=== PATIENT | male | born 1930 | race Two or more races ===

== ENCOUNTER 2016-07-02 09:06 | Inpatient (IN) | payer MEDICARE, OTHER ==
[~2016-07-02] VITALS: Ht 172.7 cm; Wt 74.4 kg
[2016-07-02] MEDS ORDERED: ONDANSETRON HCL/PF 4 MG/2 ML VIAL ONE ×2 (09:11→11:20)
[2016-07-02] MEDS ORDERED: MORPHINE SULFATE INJ 2 MG/ML DISP.SYRIN ONE ×2 (09:11→11:20)
[2016-07-02] MEDS ORDERED: IV NS 0.9% 500 ML IV ONE (09:11)
[2016-07-02] MEDS ORDERED: IV SET PRIMARY PUMP SET 1 EA INFUS.SET MC ONE ×2 (09:11→15:27)
--- NOTE | 2016-07-02 09:15 | NUR ---
PT TO ED ROOM 07. BIB RA C/O BILATERAL WRIST PAIN, AND UPPER LIP PAIN S/P GLF. A/A/O. SIDE RAILS UP. HOB ELEVATED. CONNECTED TO MONITOR. DENIES SOB. SEEN AND EVALUATED BY ED PROVIDER.
[2016-07-02] MEDS ORDERED: ONDANSETRON HCL/PF 4 MG/2 ML VIAL IVP ONE (09:30)
[2016-07-02] MEDS ORDERED: IV NS 0.9% 500 ML BAG IV ONE (09:30)
[2016-07-02] MEDS ORDERED: MORPHINE SULFATE INJ 2 MG/ML DISP.SYRIN IV ONE ×2 (09:30→11:30)
[2016-07-02 09:33] LABS: BASOPHILS % (AUTO) 0.5 % (0.0-2.0); EOSINOPHILS # (AUTO) 0.1 /CMM (0.0-0.7); EOSINOPHILS % (AUTO) 0.6 % (0.0-6.0); HEMATOCRIT 34 % (39-51); HEMOGLOBIN 11.5 g/dL (13.5-17.5); LYMPHOCYTES # (AUTO) 1.2 /CMM (0.8-4.8); LYMPHOCYTES % (AUTO) 12.3 % (20.0-44.0); MEAN CORPUSCULAR HEMOGLOBIN 32 PG (26.0-33.0); MEAN CORPUSCULAR HGB CONC 34 g/dl (31.0-36.0); MEAN CORPUSCULAR VOLUME 95 fL (80-96); MONOCYTES # (AUTO) 0.9 /CMM (0.1-1.30); MONOCYTES % (AUTO) 9.7 % (2.0-12.0); NEUTROPHILS # (AUTO) 7.3 /CMM (1.8-8.9); NEUTROPHILS % (AUTO) 76.9 % (43.0-81.0); PLATELET COUNT (AUTO) 179 /CMM (150-450); RDW COEFFICIENT OF VARIATION 12.8 (11.5-15.0); RED BLOOD CELL COUNT(AUTO) 3.59 MIL/uL (4.5-6.0); WHITE BLOOD COUNT (AUTO) 9.5 K/uL (4.3-11.0)
[2016-07-02 09:42] LABS: CALCIUM, SERUM 9.2 mg/dL (8.5-10.1); CREATININE 1.3 mg/dL (0.6-1.3); POTASSIUM 4.1 mmol/L (3.5-5.1)
[2016-07-02] MEDS ORDERED: ASPI81TA2 PO (09:53)
[2016-07-02] MEDS ORDERED: ATOR40TA PO (09:53)
[2016-07-02] MEDS ORDERED: MEMA10TA PO (09:53)
[2016-07-02 09:54] LABS: INR 0.96 (0.87-1.13); PROTHROMBIN TIME 10.3 SECS (9.5-12.7)
--- NOTE | 2016-07-02 10:31 | NUR ---
Patient is resting comfortably in bed with eyes closed. Easily aroused. VSS
[2016-07-02] MEDS ORDERED: ONDANSETRON HCL/PF 4 MG/2 ML VIAL IV ONE (11:30)
--- NOTE | 2016-07-02 11:30 | NUR ---
PT TO CT VIA [facility] IN STABLE CONDITION
--- NOTE | 2016-07-02 11:45 | NUR ---
PT IS BACK FROM CT VIA [place] IN STABLE CONDITION
--- NOTE | 2016-07-02 12:05 | NUR ---
Patient is resting comfortably in bed with eyes closed. Easily aroused. VSS
--- NOTE | 2016-07-02 13:16 | NUR ---
Patient is resting comfortably in bed. Easily aroused. VSS
--- NOTE | 2016-07-02 13:17 | NUR ---
PT GOING TO M/S RM 200 NURSE IS HELEN
[2016-07-02] MEDS ORDERED: HYDROMORPHONE 1 MG/1 ML DISP.SYRIN IV ONE (13:30)
[2016-07-02 13:31] LABS: BILIRUBIN,DIRECT 0.2 mg/dL (0.0-0.2); BILIRUBIN,TOTAL 0.9 mg/dL (0.2-1.0); TOTAL PROTEIN, SERUM 7.5 g/dL (6.4-8.2)
[2016-07-02] MEDS ORDERED: HYDROMORPHONE 1 MG/1 ML DISP.SYRIN ONE (13:32)
--- NOTE | 2016-07-02 13:43 | NUR ---
Patient is resting comfortably in bed with eyes closed. Easily aroused. VSS
--- NOTE | 2016-07-02 14:01 | NUR ---
REPORT GIVEN TO HELEN [address] FOSTER
--- NOTE | 2016-07-02 14:30 | NUR ---
MS RN NOTES 86 YEARS OLD MALE ADMITTED FROM HOME. S/P FALL. PATIENT IS A/O X3, FORGETFUL. ON ROOM AIR, TOLERATING WELL. IV IN RIGHT AC G20, SITE IS LEAKING. MADE COMFORTABLE IN BED, BOTH WRIST WITH SPLINT IN PLACE, NO C/O PAIN AT THIS TIME. CALL LIGHT WITHIN REACH WILL CONT TO MONITOR.
[2016-07-02 14:56] VITALS: BP 126/72
[2016-07-02] MEDS ORDERED: ACETAMINOPHEN 325 MG TABLET PO PRN (15:00)
[2016-07-02] MEDS ORDERED: MAG HYDROX/AL HYDROX/SIMETH 30 ML UDC PO PRN (15:00)
[2016-07-02] MEDS ORDERED: MAGNESIUM HYDROXIDE 30 ML UDC PO PRN (15:00)
[2016-07-02] MEDS ORDERED: Z GUARD REMEDY 2 OZ OINT TP PRN (15:00)
[2016-07-02] MEDS ORDERED: ZOLPIDEM TARTRATE 5 MG TABLET PO PRN (15:00)
[2016-07-02] MEDS ORDERED: ONDANSETRON HCL/PF 4 MG/2 ML VIAL IVP PRN (15:00)
--- NOTE | 2016-07-02 15:00 | NUR ---
SKIN BODY ASSESSMENT DONE, PHOTOS TAKEN AND PLACE IN THE CHART. ABDOUL-SON AT THE BED SIDE, ASSIST PATIENT WITH TRANSLATION DURING ADMISSION PROCESS.
[2016-07-02 16:00] VITALS: BP 126/72
[2016-07-02] MEDS: IV NS 0.9% 1,000 ML IV PRN (16:38)
[2016-07-02] MEDS: PANTOPRAZOLE 40 MG TABLET.DR PO SCH (16:44)
[2016-07-02] MEDS: MEMANTINE HCL 5 MG TABLET PO SCH (16:44)
[2016-07-02] MEDS: ATORVASTATIN 40 MG TABLET PO SCH (16:44)
[2016-07-02] MEDS: ASPIRIN 81 MG TAB.CHEW PO SCH (16:45)
--- NOTE | 2016-07-02 19:18 | NUR ---
MS RN CLOSING NOTES PATIENT IN BED, A/O X3, FORGETFUL. NOT IN DISTRESS. IV IN LEFT AC G20 PATENT AND INTACT, IV NS INFUSING AT 75ML/HR, TOLERATING WELL. PATIENT WITH POOR APPETITE, OFFERED FLUIDS PO AND SNACKS. MADE COMFORTABLE IN BED, NO C/O PAIN AT THIS TIME. BED LOW AND LOCKED, CALL LIGHT WITHIN REACH. ENDORSED TO HUMAN RESOURCES ANALYST RN FOR CONTINUITY OF CARE.
--- NOTE | 2016-07-02 19:30 | NUR ---
MS RN NOTES RECEIVED ON BED A/O X2,SPEAK EGYPTIAN ONLY,S/P FALL AT HOME ,POSSIBLE WRIST FRACTURE,BREATHING REGULAR,NOT IN ANY FORM OF DISTRESS,IVF INFUSING WELL LEFT AC,SITE PATENT.BOTH WRIST WITH SPLINT TO IMMOBILIZED.FALL PRECAUTION OBSERVED,CALL LIGHT IN REACH,NEEDS ANTICIPATED.
[2016-07-02 20:00] VITALS: BP 135/67
--- NOTE | 2016-07-02 22:38 | NUR ---
MS RN NOTES C/O PAIN 6/10 ON BILATERAL WRIST,MEDICATED WITH NORCO 5/325MG,1TAB PO ORDERED.WILL MONITOR FOR RELIEF.
[2016-07-02] MEDS: HYDROCODONE/APAP 5/325MG 1 EACH TABLET PO PRN (22:48)
--- NOTE | 2016-07-03 01:00 | NUR ---
MS RN NOTES SLEEPING AT THIS TIME
[2016-07-03] MEDS: MORPHINE SULFATE INJ 2 MG/ML DISP.SYRIN IV PRN ×3 (03:17→15:03)
--- NOTE | 2016-07-03 03:17 | NUR ---
MS RN NOTES PAIN MANAGEMENT AWAKE,MOANING IN PAIN,RESTLESS.MEDICATED WITH MORPHINE 2MG IVP ORDERED FOR SEVERE PAIN.WILL MONITOR FOR RELIEF
[2016-07-03] MEDS: IV NS 0.9% 1,000 ML IV PRN (05:31)
--- NOTE | 2016-07-03 06:35 | NUR ---
MS RN NOTES STILL IN PAIN ON EXERTION,IVF INFUSING,REPOSITION PER PROTOCOL.ALL NEEDS ATTENDED.WILL ENDORSE TO DAY NURSE FOR JYOTSNA.
--- NOTE | 2016-07-03 07:15 | NUR ---
MS RN NOTES RECEIVED PATIENT IN BED, AWAKE, APPEARS COMFORTABLE. ON OXYGEN AT 2L/MIN VIA NC, NO SOB. IV IN LEFT AC, IV NS INFUSING AT 75ML/HR. NO C/O PAIN AT THIS TIME. BOTH WRIST WITH SPLINT IN PLACE. CALL LIGHT WITHIN REACH. WILL CONT TO MONITOR.
[2016-07-03 08:00] VITALS: BP 126/69
[2016-07-03] MEDS: ASPIRIN 81 MG TAB.CHEW PO SCH (08:44)
[2016-07-03] MEDS: MEMANTINE HCL 5 MG TABLET PO SCH ×2 (08:44→16:37)
[2016-07-03] MEDS: PANTOPRAZOLE 40 MG TABLET.DR PO SCH (08:44)
[2016-07-03] MEDS: ATORVASTATIN 40 MG TABLET PO SCH (08:44)
[2016-07-03 08:46] LABS: BASOPHILS % (AUTO) 0.4 % (0.0-2.0); EOSINOPHILS # (AUTO) 0.1 /CMM (0.0-0.7); EOSINOPHILS % (AUTO) 1.4 % (0.0-6.0); HEMATOCRIT 31 % (39-51); HEMOGLOBIN 10.2 g/dL (13.5-17.5); LYMPHOCYTES # (AUTO) 1.3 /CMM (0.8-4.8); MEAN CORPUSCULAR HEMOGLOBIN 32 PG (26.0-33.0); MEAN CORPUSCULAR HGB CONC 33 g/dl (31.0-36.0); MEAN CORPUSCULAR VOLUME 97 fL (80-96); MONOCYTES # (AUTO) 0.9 /CMM (0.1-1.30); MONOCYTES % (AUTO) 11.3 % (2.0-12.0); NEUTROPHILS # (AUTO) 5.5 /CMM (1.8-8.9); NEUTROPHILS % (AUTO) 69.9 % (43.0-81.0); PLATELET COUNT (AUTO) 164 /CMM (150-450); RDW COEFFICIENT OF VARIATION 13.5 (11.5-15.0); RED BLOOD CELL COUNT(AUTO) 3.21 MIL/uL (4.5-6.0); WHITE BLOOD COUNT (AUTO) 7.8 K/uL (4.3-11.0)
[2016-07-03 09:03] LABS: ALBUMIN 3.1 g/dL (3.4-5.0); CALCIUM, SERUM 8.4 mg/dL (8.5-10.1); MAGNESIUM 1.6 mg/dL (1.8-2.4); POTASSIUM 4.4 mmol/L (3.5-5.1); TOTAL PROTEIN, SERUM 6.4 g/dL (6.4-8.2)
--- NOTE | 2016-07-03 11:00 | NUR ---
PATIENT IS SEEN BY DR. FOSTER TODAY, DR. CONTRERAS WILL SEE THE PATIENT FOR CONSULT.
[2016-07-03] MEDS ORDERED: SECONDARY IV SET 1 EA INFUS.SET MC ONE (14:47)
[2016-07-03] MEDS: Magnesium 1GM/D5W 100ML PREMIX 100 ML IV SCH ×2 (14:52→16:34)
[2016-07-03 16:00] VITALS: BP 118/68
--- NOTE | 2016-07-03 17:00 | NUR ---
PER DR. MUNOZ ORTHO CONSULTATION. CALLED PAGE DR. ESPARZA (PALAEONTOLOGIST) PER EXCHANGED. AWAITING FOR MD TRIPLETT CALL BACK, WILL ENDORSE TO NET MAKING SUPERVISOR RN.
--- NOTE | 2016-07-03 18:12 | NUR ---
MS RN CLOSING NOTES PATIENT IN BED, A/O X2. NOT IN DISTRESS. IV IN LEFT AC G20 PATENT AND INTACT, IV MAGNESIUM SUPPLEMENTED ORDERED. SCD IN PLACE. SPLINT TO BOTH WRIST, NO C/O PAIN AT THIS TIME. CALL LIGHT WITHIN REACH. FOR XRAY ANNE RIBS ORDERED. ORTHO PER DR. FOSTER. WILL ENDORSE TO EXTRUSION BENDER RN FOR CONTINUITY OF CARE.
[2016-07-03 20:00] VITALS: BP 131/67
[2016-07-04] MEDS: IV NS 0.9% 1,000 ML IV PRN (05:57)
--- NOTE | 2016-07-04 06:33 | NUR ---
MS RN NOTE PATIENT STABLE. TURNED AND REPOSITIONED EVERY TWO HOURS. PICTURES TAKEN AND PLACED IN CHART. WILL ENDORSE TO DAY SHIFT FOR JYOTSNA.
[2016-07-04 06:42] LABS: BASOPHILS % (AUTO) 0.1 % (0.0-2.0); EOSINOPHILS % (AUTO) 0.3 % (0.0-6.0); HEMATOCRIT 34 % (39-51); HEMOGLOBIN 11.1 g/dL (13.5-17.5); LYMPHOCYTES # (AUTO) 1.4 /CMM (0.8-4.8); LYMPHOCYTES % (AUTO) 14.1 % (20.0-44.0); MEAN CORPUSCULAR HEMOGLOBIN 32 PG (26.0-33.0); MEAN CORPUSCULAR HGB CONC 33 g/dl (31.0-36.0); MEAN CORPUSCULAR VOLUME 98 fL (80-96); MONOCYTES # (AUTO) 1.1 /CMM (0.1-1.30); MONOCYTES % (AUTO) 11.3 % (2.0-12.0); NEUTROPHILS # (AUTO) 7.3 /CMM (1.8-8.9); NEUTROPHILS % (AUTO) 74.2 % (43.0-81.0); PLATELET COUNT (AUTO) 175 /CMM (150-450); RDW COEFFICIENT OF VARIATION 13.4 (11.5-15.0); RED BLOOD CELL COUNT(AUTO) 3.47 MIL/uL (4.5-6.0); WHITE BLOOD COUNT (AUTO) 9.8 K/uL (4.3-11.0)
[2016-07-04 07:00] LABS: ALBUMIN 3.2 g/dL (3.4-5.0); BILIRUBIN,DIRECT 0.2 mg/dL (0.0-0.2); BILIRUBIN,TOTAL 0.7 mg/dL (0.2-1.0); CALCIUM, SERUM 8.7 mg/dL (8.5-10.1); POTASSIUM 4.1 mmol/L (3.5-5.1)
[2016-07-04] MEDS: PANTOPRAZOLE 40 MG TABLET.DR PO SCH (07:02)
--- NOTE | 2016-07-04 07:10 | NUR ---
MS RN NOTES PATIENT IN BED, SLEEPING, AROUSES EASILY. ON OXYGEN AT 2L/MIN VIA NC, NO SOB NOTED. BILATERAL WRIST, IMMOBILIZER IN PLACE. APPEARS COMFORTABLE IN BED, SCD IN PLACE. CALL LIGHT WITHIN REACH. WILL CONT TO MONITOR.
[2016-07-04 08:00] VITALS: BP 147/89
--- NOTE | 2016-07-04 09:23 | NUR ---
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 TWO HEALED AREAS NOTED. PT NOTED TO HAVE WRIST IMMOBILIZERS IN PLACE AND SWELLING WITH BRUISING TO RT KNEE, PRESENT ON ADMISSION. PT ON VEDA ISOFLEX LOW AIRLOSS BED. ALL SKIN AND WOUND RECOMMENDATIONS DISCUSSED WITH NURSING STAFF. IN AGREEMENT WITH PLAN OF CARE. WILL SEE PRN. Addendum: 07/04/16 at 0936 by EMELYN GROSSMAN WNDNU Amended: Links added.
[2016-07-04] MEDS: ATORVASTATIN 40 MG TABLET PO SCH (09:31)
[2016-07-04] MEDS: MEMANTINE HCL 5 MG TABLET PO SCH ×2 (09:31→18:17)
[2016-07-04] MEDS: ASPIRIN 81 MG TAB.CHEW PO SCH (09:31)
[2016-07-04] MEDS: MORPHINE SULFATE INJ 2 MG/ML DISP.SYRIN IV PRN (09:36)
[2016-07-04] MEDS: HYDROGEL DRESSING 90 GM TUBE TP PRN (10:36)
[2016-07-04] MEDS: HYDROGEL DRESSING 90 GM TUBE TP SCH (10:37)
--- NOTE | 2016-07-04 12:30 | NUR ---
FOLLOW UP ORTHO CONSULT PER DR. FOSTER NOTES. CALLED LEFT MESSAGE TO GERRY JONES (BLANKER OPERATOR).
--- NOTE | 2016-07-04 14:00 | NUR ---
INFORMED DR. FOSTER THAT PATIENT HAS NOT SEEN YET BY ORTHO, PER DR. FOSTER HE NOTIFIED ANA LAURA.
[2016-07-04 16:00] VITALS: BP 129/78
--- NOTE | 2016-07-04 18:11 | NUR ---
MS RN CLOSING NOTES PATIENT IN BED, APPEARS COMFORTABLE. TURN AND REPOSITION, ON ISOFLEX BED. BILATERAL WRIST IMMOBILIZER IN PLACE, PATIENT REFUSED SCD AT THIS TIME. SON AT THE BED SIDE. AWAITING FOR ORTHO CONSULT. WILL ENDORSE TO SKOOG OPERATOR RN FOR CONTINUITY OF CARE.
--- NOTE | 2016-07-04 19:00 | NUR ---
PER ANA LAURA BARRAZA, HE SEE THE PATIENT SOON AND NO SURGERY INDICATED AT THIS TIME. CALLED ABDOUL-SON LEFT MESSAGE TO HIS VOICE MAIL. ENDORSED TO MANAGER MEDICARE MARKETING RN FOR CONTINUITY OF CARE.
[2016-07-04 20:20] VITALS: BP 142/72
[2016-07-04 22:00] VITALS: BP 142/72
[2016-07-05] MEDS: PANTOPRAZOLE 40 MG TABLET.DR PO SCH (06:41)
--- NOTE | 2016-07-05 07:30 | NUR ---
MS RN AM NOTES PATIENT IN BED,ASLEEP, AROUSES EASILY. BRITISH SPEAKING, ON OXYGEN AT 2L/MIN VIA NC, NO SOB NOTED. BILATERAL WRIST, IMMOBILIZER IN PLACE. LEFT AC 20 G WITH NS AT 75 ML/HR INFUSING, SITE CLEAR. APPEARS COMFORTABLE IN BED, SCD IN PLACE. REGULAR DIET. CALL LIGHT WITHIN REACH. WILL CONT TO MONITOR.
[2016-07-05 07:59] VITALS: BP 135/73
[2016-07-05 08:00] VITALS: BP 135/73
[2016-07-05] MEDS: ASPIRIN 81 MG TAB.CHEW PO SCH (08:47)
[2016-07-05] MEDS: ATORVASTATIN 40 MG TABLET PO SCH (08:47)
[2016-07-05] MEDS: MEMANTINE HCL 5 MG TABLET PO SCH ×2 (08:48→16:38)
[2016-07-05] MEDS: HYDROGEL DRESSING 90 GM TUBE TP SCH (08:48)
--- NOTE | 2016-07-05 09:30 | NUR ---
RN NOTES DR. NAZARIO AT BEDSIDE WITH MILK TANKER DRIVER. ERCP PROCEDURE EXPLAINED BY HIM TO PATIENT. PATIENT CONSENTED. SCHEDULED FOR ERCP KATHRYN AT 1100. CONSENT SIGNED. NPO POST MIDNIGHT. DUE MEDS ADMINISTERED. Addendum: 07/05/16 at 0945 by GINGER GILES RN ADDENDUM DR. NAZARIO TRIED TO CALL ABDOUL BUT ONLY VOICEMAIL. MESSAGE LEFT.
[2016-07-05 16:00] VITALS: BP 142/89
[2016-07-05 18:00] VITALS: BP 142/89
--- NOTE | 2016-07-05 18:26 | NUR ---
MS RN CLOSING NOTES PATIENT IN BED,RESTING, SERBIAN SPEAKING, ON OXYGEN AT 2L/MIN VIA NC, NO SOB NOTED. BILATERAL WRIST, IMMOBILIZER IN PLACE. LEFT AC 20 G WITH NS AT 75 ML/HR INFUSING, SITE CLEAR. ABDOUL - SON WAS AT BEDSIDE EARLIER, EXPLAINED THAT PATIENT IS FOR ERCP KATHRYN AT 1100, CONSENT SIGNED. SCD IN PLACE. WAS SEEN BY PHYSICAL THERAPIST EARLIER, WALKED A FEW STEPS ONLY, REGULAR DIET. NPO POST MIDNIGHT EXCEPT MEDS. CALL LIGHT WITHIN REACH. PM CARE DONE. ALL NEEDS MET. WILL ENDORSE TO NEXT SHIFT FOR JYOTSNA.
[2016-07-05 19:00] VITALS: BP 126/75
[2016-07-05 20:00] VITALS: BP 126/75
--- NOTE | 2016-07-06 05:38 | NUR ---
MS RN NOTE PATIENT REFUSING LABS AND TO BE CHANGED THIS MORNING. EDUCATED PATIENT ON IMPORTANCE OF LABS AND HYGIENE. PATIENT CONTINUED TO REFUSE. WILL TRY AGAIN LATER.
--- NOTE | 2016-07-06 06:00 | NUR ---
MS RN NOTE PATIENT STABLE. STILL REFUSING TO BE CHANGED. STILL REFUSING LABS. WILL ENDORSE TO DAY SHIFT FOR JYOTSNA.
[2016-07-06] MEDS: PANTOPRAZOLE 40 MG TABLET.DR PO SCH (06:28)
--- NOTE | 2016-07-06 07:30 | NUR ---
RN MS NOTES PATIENT IN BED, ALERT AND ORIENTED, AUSTRIAN SPEAKING, ON O2 AT 2LPM VIA NC, NO RESPIRATORY DISTRESS NOTED, LEFT AC PATENT AND INTACT, PATIENT IS ON NPO EXCEPT MEDS FOR ERCP SCHEDULED TODAY, BILATERAL SPLINTS IN PLACED, CALL LIGHT WITHIN REACH, WILL CONTINUE TO MONITOR.
[2016-07-06 08:00] VITALS: BP 131/72
[2016-07-06] MEDS: MEMANTINE HCL 5 MG TABLET PO SCH ×2 (08:13→17:09)
[2016-07-06] MEDS: HYDROGEL DRESSING 90 GM TUBE TP PRN (08:13)
[2016-07-06] MEDS: ASPIRIN 81 MG TAB.CHEW PO SCH (08:13)
[2016-07-06] MEDS: ATORVASTATIN 40 MG TABLET PO SCH (08:13)
[2016-07-06] MEDS: HYDROGEL DRESSING 90 GM TUBE TP SCH (09:00)
[2016-07-06 09:38] LABS: BASOPHILS % (AUTO) 0.2 % (0.0-2.0); EOSINOPHILS # (AUTO) 0.2 /CMM (0.0-0.7); EOSINOPHILS % (AUTO) 1.7 % (0.0-6.0); HEMATOCRIT 31 % (39-51); HEMOGLOBIN 10.4 g/dL (13.5-17.5); LYMPHOCYTES # (AUTO) 1.2 /CMM (0.8-4.8); LYMPHOCYTES % (AUTO) 12.9 % (20.0-44.0); MEAN CORPUSCULAR HEMOGLOBIN 32 PG (26.0-33.0); MEAN CORPUSCULAR HGB CONC 33 g/dl (31.0-36.0); MEAN CORPUSCULAR VOLUME 96 fL (80-96); MONOCYTES # (AUTO) 1.4 /CMM (0.1-1.30); MONOCYTES % (AUTO) 14.7 % (2.0-12.0); NEUTROPHILS # (AUTO) 6.6 /CMM (1.8-8.9); NEUTROPHILS % (AUTO) 70.5 % (43.0-81.0); PLATELET COUNT (AUTO) 223 /CMM (150-450); RDW COEFFICIENT OF VARIATION 13.3 (11.5-15.0); RED BLOOD CELL COUNT(AUTO) 3.25 MIL/uL (4.5-6.0); WHITE BLOOD COUNT (AUTO) 9.4 K/uL (4.3-11.0)
[2016-07-06 09:56] LABS: ALBUMIN 2.4 g/dL (3.4-5.0); BILIRUBIN,TOTAL 0.8 mg/dL (0.2-1.0); CALCIUM, SERUM 8.4 mg/dL (8.5-10.1); CREATININE 1.1 mg/dL (0.6-1.3); POTASSIUM 4.5 mmol/L (3.5-5.1); TOTAL PROTEIN, SERUM 6.6 g/dL (6.4-8.2)
[2016-07-06 09:58] LABS: INR 0.92 (0.87-1.13); PROTHROMBIN TIME 9.8 SECS (9.5-12.7)
[2016-07-06] MEDS ORDERED: IOHEXOL 240MG/ML 0 ML IV ONE (10:21)
[2016-07-06] MEDS ORDERED: IOHEXOL 240MG/ML 50 ML IV ONE (10:29)
--- NOTE | 2016-07-06 10:58 | NUR ---
RN MS NOTES PATIENT TAKEN TO OR FOR ERCP, IN STABLE CONDITION, SON AT BEDSIDE.
[2016-07-06] MEDS ORDERED: FENTANYL PF 100MCG/2ML AMPUL ONE (11:29)
[2016-07-06] MEDS ORDERED: SUCCINYLCHOLINE CHLORIDE 20 MG/ML VIAL ONE (11:30)
[2016-07-06] MEDS ORDERED: MIDAZOLAM HCL 2 MG/2ML VIAL ONE (11:30)
[2016-07-06] MEDS ORDERED: ROCURONIUM BROMIDE 50 MG/5 ML ONE (11:30)
--- NOTE | 2016-07-06 13:05 | NUR ---
RN MS NOTES RECEIVED PATIENT BACK FROM OR S/P ERCP, IN STABLE CONDITION, VITALS BP117/72, P75, R18, SPO2 93% IN 2LPM, NO DISTRESS NOTED, HOB ELEVATED, SON AT BEDSIDE, ALL NEEDS ATTENDED, CALL LIGHT WITHIN REACH, WILL CONTINUE TO MONITOR.
[2016-07-06 13:10] VITALS: BP 117/72
[2016-07-06 13:25] VITALS: BP 130/76
[2016-07-06] MEDS ORDERED: ANESTHESIA TRAY IN PYXIS 1 EA TRAY MC ONE (13:55)
[2016-07-06 16:00] VITALS: BP 123/81
--- NOTE | 2016-07-06 19:00 | NUR ---
RN MS NOTES PATIENT IN STABLE CONDITION, NO DISTRESS NOTED, ERCP DONE TODAY AND TOLERATED WELL, DVT PUMP IN PLACED, IVF INFUSING AND TOLERATING WELL, CALL LIGHT PLACED WITHIN REACH, ENDORSED TO EGGS INSPECTOR FOR JYOTSNA.
--- NOTE | 2016-07-06 19:35 | NUR ---
MS RN INITIAL NOTES: RECEIVED REPORT FROM MORALES WILKERSON. PT ON BED, AWAKE, A/O X2, ON 2L VIA NC RESPIRATION EVEN AND UNLABORED, APPEARS CALM AND COMFORTABLE, NO FACIAL GRIMACE NOTED, NOTED LEFT AC IV ACCESS LEAKING, STOPPED IV AND REMOVED THE ABOVE LINE, WILL INSERT A NEW ONE. PT NOTED TO HAVE BILATERAL WRIST SPLINT IN PLACED, ALSO BRUISES ON HAND UP TO THE THUMB, GOOD CAPILLARY REFILL NOTED, RADIAL PULSES INTACT AND PALPABLE. PT ABLE TO MOVE AND WIGGLE HANDS AND FINGERS. SAFETY PRECAUTIONS FOR FALL INITIATED CALL LIGHT IN REACH. BLE OFFLOADED. WILL CONTINUE TO MONITOR
[2016-07-06 20:00] VITALS: BP 139/83
[2016-07-06 20:34] VITALS: BP 139/83
--- NOTE | 2016-07-06 22:10 | NUR ---
MS RN NOTES: TRIED INSERTING NEW IV ACCESS FOR THE PT HOWEVER UNSUCCESSFUL, DR VALERIO IN THE UNIT ASKED IF PT OKAY TO HAVE A MIDLINE, MD STATED "OKAY".
--- NOTE | 2016-07-06 22:37 | NUR ---
MS RN NOTES: PT STATED PAIN AND POINTING TO HIS HEAD AND NECK AREA, PER PARDO SOUZA SCALE, PT ON 3-4 SCALE PRN TYLENOL 650MG TAB PO ADMINISTERED TO THE PT AT THIS TIME,
--- NOTE | 2016-07-06 23:00 | NUR ---
MS RN NOTES: ENCOURAGE PT TO DRINK FLUID, PT TOLERATING PO INTAKE WELL, EVEN ASSISTED PT IN FEEDING AND HELPING TO DRINK WATER, OFFERED OTHER SNACK BUT PT REFUSED
--- NOTE | 2016-07-07 | NUR ---
MS RN NOTES: TRIED ANOTHER IV INSERTION BUT UNSUCCESSFUL, INFORMED RN SUP ABOUT MIDLINE INSERTION, STATED "OKAY"
--- NOTE | 2016-07-07 04:00 | NUR ---
MS RN NOTES: INFORMED RN SUP WILMER REGARDING MIDLINE INSERTION, SHE STATED SHE WILL HAVE DAY RN SUP TAKE CARE OF IT
[2016-07-07 06:25] LABS: BASOPHILS % (AUTO) 0.2 % (0.0-2.0); EOSINOPHILS # (AUTO) 0.2 /CMM (0.0-0.7); EOSINOPHILS % (AUTO) 1.8 % (0.0-6.0); HEMATOCRIT 30 % (39-51); HEMOGLOBIN 9.9 g/dL (13.5-17.5); LYMPHOCYTES # (AUTO) 1.3 /CMM (0.8-4.8); LYMPHOCYTES % (AUTO) 10.8 % (20.0-44.0); MEAN CORPUSCULAR HEMOGLOBIN 32 PG (26.0-33.0); MEAN CORPUSCULAR HGB CONC 33 g/dl (31.0-36.0); MEAN CORPUSCULAR VOLUME 98 fL (80-96); MONOCYTES # (AUTO) 1.3 /CMM (0.1-1.30); MONOCYTES % (AUTO) 11.3 % (2.0-12.0); NEUTROPHILS # (AUTO) 8.9 /CMM (1.8-8.9); NEUTROPHILS % (AUTO) 75.9 % (43.0-81.0); PLATELET COUNT (AUTO) 232 /CMM (150-450); RDW COEFFICIENT OF VARIATION 13.8 (11.5-15.0); RED BLOOD CELL COUNT(AUTO) 3.09 MIL/uL (4.5-6.0); WHITE BLOOD COUNT (AUTO) 11.8 K/uL (4.3-11.0)
[2016-07-07 06:27] LABS: ALBUMIN 2.3 g/dL (3.4-5.0); BILIRUBIN,TOTAL 0.6 mg/dL (0.2-1.0); CALCIUM, SERUM 8.5 mg/dL (8.5-10.1); CREATININE 1.1 mg/dL (0.6-1.3); POTASSIUM 3.8 mmol/L (3.5-5.1); TOTAL PROTEIN, SERUM 6.2 g/dL (6.4-8.2)
--- NOTE | 2016-07-07 06:44 | NUR ---
MS RN CLOSING NOTES: PT ON BED, AWAKE, REMAINS ON 2L VIA NC, A/O X2, APPEARS CALM AND COMFORTABLE, NO IV ACCESS AWAITING FOR MIDLINE INSERTION. NURSING SUP WILMER RODRIGUEZ. BLE KEPT OFFLOADED. VS REMAINS STABLE, BILATERAL WRIST BRACES/SPLINT KEPT IN PLACED. NEEDS ATTENDED. URINAL IN REACH. SAFETY PRECAUTIONS FOR FALL REMAINS ENGAGED, CALL LIGHT IN REACH, WILL ENDORSE TO DAY RN FOR JYOTSNA. Addendum: 07/07/16 at 0741 by SHRAVAN CORONA RN MS RN NOTES: CALLED RN GENO APPIAH, ABOUT MIDLINE FOR PT, SHE INITIALLY AGREE, THEN CALL BACK AGAIN AND SHE STATED IF PT TOLERATING PO INTAKE WELL, PT WILL BE OKAY NOT TO HAVE MIDLINE, PT NOT GETTING ANY IV ATB, HOWEVER UNSUCCESSFUL TO INSERT IV, PT SUPPOSED TO GET IV NS AT 75ML/HR, ENDORSED TO ROCK CUADRA
[2016-07-07 07:00] VITALS: BP 141/84
--- NOTE | 2016-07-07 07:44 | NUR ---
MS RN MORNING NOTES: PT IN BED, AWAKE ORIENTED X3, NORWEGIAN SPEAKING. NO DISTRESS/DISCOMFORT NOTED, DENIES PAIN AT THIS TIME. NO IV ACCESS AWAITING FOR MIDLINE INSERTION. NURSING SUP BIJAL AWARE. BILATERAL WRIST BRACES/SPLINT IN PLACE. SAFETY MEASURES RENDERED, CALL LIGHT IN REACH, WILL CONTINUE TO MONITOR. .
[2016-07-07 08:00] VITALS: BP 141/84
--- NOTE | 2016-07-07 08:00 | NUR ---
MS/RN NOTES PATIENT WITH NO IV. GOLD NIB GRINDER AND PHYSICIAN NOTIFIED. DR ROSS STATED THE PATIENT TO BE DISCHARGED AND NO INDICATIONS OF IV FLUIDS, ANTIBIOTICS TO BE GIVEN. .
[2016-07-07] MEDS: ASPIRIN 81 MG TAB.CHEW PO SCH (09:42)
[2016-07-07] MEDS: ATORVASTATIN 40 MG TABLET PO SCH (09:42)
[2016-07-07] MEDS: PANTOPRAZOLE 40 MG TABLET.DR PO SCH (09:42)
[2016-07-07] MEDS: HYDROGEL DRESSING 90 GM TUBE TP SCH (09:42)
[2016-07-07] MEDS: MEMANTINE HCL 5 MG TABLET PO SCH ×2 (09:42→16:07)
--- NOTE | 2016-07-07 09:43 | NUR ---
MS/RN NOTES PATIENT SEEN AND EVALUATED BY PHYSICAL THERAPY.
[2016-07-07] MEDS: HYDROCODONE/APAP 5/325MG 1 EACH TABLET PO PRN (10:49)
[2016-07-07 16:00] VITALS: BP 121/74
--- NOTE | 2016-07-07 16:51 | NUR ---
MS/RN NOTES DR. ROSS AT BEDSIDE DISCUSSING PLAN OF CARE WITH SON AND POSSIBLE PLACEMENT FOR SNF.
--- NOTE | 2016-07-07 18:37 | NUR ---
MS/RN NOTES PATIENT RESTING IN BED, SON AT BEDSIDE. PATIENT STABLE, NO SIGNIFICANT CHANGES NOTED. VITAL SIGNS WITHIN NORMAL LIMITS. PATIENT ABLE TO GET OUT OF BED WITH PT HOWEVER WEAKNESS IN UPPER AND LOWER EXTREMITIES. NO IV SITE , ALL DISCIPLINES INVOLVED NOTIFIED. PATIENT KEPT CLEAN AND DRY, ALL NEEDS MET AND ATTENDED, SAFETY MEASURES RENDERED, WILL ENDORSE CARE TO CONTRACT ADMINISTRATION MANAGER FOR JYOTSNA
--- NOTE | 2016-07-07 19:30 | NUR ---
MS RN INITIAL NOTES: RECEIVED REPORT FROM HEATHER WILKERSON. PT ON BED, AWAKE, A/O X2, ON 2L VIA NC RESPIRATION EVEN AND UNLABORED, PT HAVE BILATERAL WRIST SPLINT IN PLACED, ALSO BRUISES ON HAND UP TO THE THUMB, GOOD CAPILLARY REFILL NOTED, RADIAL PULSES INTACT AND PALPABLE. PT ABLE TO MOVE AND WIGGLE HANDS AND FINGERS. APPEARS CALM AND COMFORTABLE, NO FACIAL GRIMACE NOTED, PT HAS NO IV ACCESS, OKAY WITH DR ROSS. SAFETY PRECAUTIONS FOR FALL INITIATED CALL LIGHT IN REACH. BLE OFFLOADED. WILL CONTINUE TO MONITOR
[2016-07-07 19:54] VITALS: BP 117/76
[2016-07-07 20:00] VITALS: BP 117/66
--- NOTE | 2016-07-07 22:00 | NUR ---
MS RN NOTES: SUPERVISOR OF OFFICIALS PROVIDED BED BATH FOR THE PT, ALSO WOUND CARE DONE ORDERED
--- NOTE | 2016-07-08 04:35 | NUR ---
MS RN NOTES: PT REFUSED FOR TURNING AND REPOSITION AT THIS TIME, EDUCATION PROVIDED TO THE PT
--- NOTE | 2016-07-08 05:00 | NUR ---
ms rn notes: field laboratory operator came to draw blood, pt refused, lab is a bhutanese dive[place] speaking, pt refused for blood draw, instructed field laboratory operator to come after breakfast, possible by that time pt more cooperative
--- NOTE | 2016-07-08 05:53 | NUR ---
MS RN NOTES: PT REFUSED FOR AM CARE, EDUCATION PROVIDED TO THE PT REGARDING IMPORTANCE OF HYGIENE
--- NOTE | 2016-07-08 06:41 | NUR ---
ms rn closing notes: pt on bed, awake, remains on 2l via nc, no apparent distress noted. no iv access md aware. pt for possible dc--snf vs home vs rehab, per cm pt got accepted in [facility]. ble kept offloaded. vs remains stable, needs attended. bed brakes remains engaged, bed in lowest position, call light in reach. will endorse to day rn for vince.
--- NOTE | 2016-07-08 07:14 | NUR ---
MS RN OPENING NOTES: PATIENT RECEIVED AWAKE IN BED IN NO ACUTE SIGNS OF DISTRESS. ALERT AND ORIENTED X2, DENIES ANY PAIN OR DISCOMFORTS AT THIS TIME. CALM AND APPEARS COMFORTABLE. ON SUPPLEMENTAL 02 VIA N/C AT 2LPM, TOLERATING WELL WITH NO SOB NOTED. BILATERAL WRIST SPLINT IN PLACED, GOOD CAPILLARY REFILL NOTED, RADIAL PULSES INTACT AND PALPABLE. PT ABLE TO MOVE AND WIGGLE HANDS AND FINGERS. PATIENT HAS NO IV ACCESS, OKAY WITH DR ROSS. CALL LIGHT WITHIN REACH. BED LOW AND LOCKED. ALL SAFETY PRECAUTIONS MAINTAINED. BLE OFFLOADED. WILL CONTINUE TO MONITOR
[2016-07-08 08:00] VITALS: BP 130/69
[2016-07-08] MEDS: PANTOPRAZOLE 40 MG TABLET.DR PO SCH (08:35)
[2016-07-08] MEDS: MEMANTINE HCL 5 MG TABLET PO SCH ×2 (08:36→16:19)
[2016-07-08] MEDS: ASPIRIN 81 MG TAB.CHEW PO SCH (08:36)
[2016-07-08] MEDS: ATORVASTATIN 40 MG TABLET PO SCH (08:36)
[2016-07-08] MEDS: HYDROGEL DRESSING 90 GM TUBE TP PRN ×2 (08:36→08:49)
[2016-07-08] MEDS: HYDROGEL DRESSING 90 GM TUBE TP SCH (08:50)
[2016-07-08 16:00] VITALS: BP 126/71
[2016-07-08 16:07] VITALS: BP 126/71
--- NOTE | 2016-07-08 17:20 | NUR ---
RN DISCHARGED NOTES PATIENT DISCHARGED TO [facility] IN STABLE CONDITION. PATIENT LEFT UNIT AT 1710 VIA GURNEY ACCOMPANIED BY 2EMT'S AND SON. PATIENT DENIES ANY PAIN OR DISCOMFORTS DURING DISCHARGE. HE WAS ON 02 VIA N/C VIA PORTABLE TANK, NO SOB NOTED. V/S CHECKED AND RECORDED. BELONGINGS CHECKED, COUNTED AND SIGNED FORMED. HEALTH TEACHINGS GIVEN TO PATIENT /FAMILY AND VERBALIZED UNDERSTANDING. REPORT GIVEN TO [facility] CHARGE NURSE. MD AND CHARGE NURSE AWRAE OF DISCHARGE.
== END 2016-07-08 18:34 | DRG 444 ==
LOC: ER 09:09 → MEDSG2 14:11
PROVIDERS: ADMIT Internal Medicine; ATTEND Internal Medicine
PROC: 0FC98ZZ Extirpation of Matter from Common Bile Duct, Via Natural or Artificial Opening Endoscopic (ICD-10-PCS; principal; 2016-07-06 11:40)
DX: K80.50 Calculus of bile duct without cholangitis or cholecystitis without obstruction (principal); N17.0 Acute kidney failure with tubular necrosis; S52.572A Other intraarticular fracture of lower end of left radius, initial encounter for closed fracture; S52.571A Other intraarticular fracture of lower end of right radius, initial encounter for closed fracture; E78.5 Hyperlipidemia, unspecified; F03.90 Unspecified dementia, unspecified severity, without behavioral disturbance, psychotic disturbance, mood disturbance, and anxiety; R74.0 Nonspecific elevation of levels of transaminase and lactic acid dehydrogenase [LDH]; W01.0XXA Fall on same level from slipping, tripping and stumbling without subsequent striking against object, initial encounter; Y99.9 Unspecified external cause status; Y92.009 Unspecified place in unspecified non-institutional (private) residence as the place of occurrence of the external cause; Z90.49 Acquired absence of other specified parts of digestive tract; Y93.9 Activity, unspecified
CPT/HCPCS: 36415; 70450-TC; 70486-TC; 71010-TC; 71111-TC; 72125-TC; 73110; 73200-TC; 73564-TC; 74000-TC; 74181-TC; 80048-TC; 80053-TC; 80061-TC; 80076-TC; 83690-TC; 83735-TC; 84100-TC; 85025-TC; 85730-TC; 87081-TC; 94799-TC; 97001-TC; 97003-TC; 97110-TC; 97116-TC; 97530-TC; A4606; A6248; A6402; J0330; J1170; J2250; J2270; J2405; J2704; J3010; J3475; J7030; J7040; Q9966; Z7610